=== PATIENT | male | born 1945 | race Caucasian/White ===

== ENCOUNTER 2019-08-03 08:11 | Day surgery (SDC) | payer MEDICARE ==
[2019-07-31 15:42] LABS: BASOPHILS % (AUTO) 0.5 % (0.0-5.0); LYMPHOCYTES % (AUTO) 15.4 % (21.0-51.0); MEAN CORPUSCULAR HEMOGLOBIN 31.8 pg (27.0-33.0); MEAN CORPUSCULAR VOLUME 93.7 fL (79-99); MONOCYTES % (AUTO) 4.9 % (3.0-13.0); NEUTROPHILS % (AUTO) 76.9 % (40.0-77.0); PLATELET COUNT (AUTO) 42 K/uL (130-400); RED BLOOD CELL COUNT(AUTO) 4.59 MIL/uL (4.50-6.20); RED CELL DISTRIBUTION WIDTH 11.7 % (11.0-15.5); WHITE BLOOD COUNT (AUTO) 7.9 K/uL (4.8-10.8)
--- NOTE | 2019-07-31 15:55 | NUR ---
nursing regarding abnormal ekg dr santos here and seen ekg and ok to proc with proc, no old ekg found on record Addendum: 07/31/19 at 1559 by SERGIO PANTOJA RN Amended: Links added.
[2019-07-31 15:56] LABS: INR 1.05 (0.85-1.15); PARTIAL THROMBOPLASTIN TIME 28.2 SEC (26.3-35.5)
[2019-07-31 15:58] VITALS: BP 156/82
[2019-07-31 16:03] LABS: CREATININE 1.1 mg/dL (0.5-1.5); POTASSIUM 4.3 mmol/L (3.5-5.1)
[2019-07-31 17:17] LABS: APPEARANCE,URINE Clear (CLEAR); BILIRUBIN,URINE Negative (NEGATIVE); COLOR,URINE Yellow (YELLOW); GLUCOSE, URINE (UA) Negative (NEGATIVE); KETONES,URINE Negative (NEGATIVE); LEUKOCYTE ESTERASE ,URINE Small (NEGATIVE); NITRATE,URINE Negative (NEGATIVE); OCCULT BLOOD,URINE Nonhemolyzed Trace (NEGATIVE); PH,URINE 7.5 (5.0-8.0); PROTEIN,URINE Trace mg/dL (NEGATIVE); UROBILINOGEN,URINE 0.2 mg/dL (0.2-1.0)
[2019-07-31 17:59] LABS: BACTERIA,URINE Moderate /HPF (None Seen)
[2019-07-31 18:00] LABS: MUCUS,URINE Few LPF (None Seen)
--- NOTE | 2019-08-02 13:26 | NUR ---
labs spoke to cori informed her that Anesthesia DR. Santos informed of low Plt 42, as per dr. santos inform dr. fernandez of low plt level. message left with cori. awaiting for further orders. all labs where fax to dr. marquez per there request
--- NOTE | 2019-08-02 17:00 | NUR ---
FOLLOW UP PATIENT HAS HX PSEUDOTHROMBOCYTOPENIA , DR PHILLIPS FOLLOWS UP PATIENT . PROGRESS NOTE ON CHART
--- NOTE | 2019-08-02 17:00 | NUR ---
FOLLOW UP CALLED DR. FLOWER OFFICE TO SPEAK TO DR. GLOVER, SPOKE TO ANDRES, SHE STATED SHE HAS BEEN TRYING TO GET OF HOLD OF DR. GLOVER THIS EARLIER TODAY TO INFORM HIM OF LOW PLT LEVEL. SHE STATED WILL WILL CONTINUE TO CALL HIM AND TO KEEP PATIENT ON SURGERY SCHEDULED AND DR. GLOVER WILL EVALUATE PATIENT IN AM.
[2019-08-03] VITALS (18 sets, daily range): BP systolic 122–148; BP diastolic 63–81
[~2019-08-03] VITALS: Ht 185.4 cm; Wt 76.6 kg
[~2019-08-03 08:11] MED LIST: APIX5TAB PO; AZELASTINE; EYE DROPS; FINA5TAB2 PO; FLEC150T2 PO; FLUTICASONE; GENTAMICIN SULFATE 320 MG in SODIUM CHLORIDE 0.9% 100 ML IV SCH; HYDR12.54 PO; LISI40TA4 PO; SIMV-46 PO; TEMA30CA PO
[2019-08-03] MEDS ORDERED: LACTATED RINGERS 1000ML 1,000 ML IV ONE (08:56)
[2019-08-03] MEDS: CEFTRIAXONE SODIUM 1 GM IVP SCH ×2 (09:00→10:40)
[2019-08-03] MEDS ORDERED: LEVO500T89 PO (10:00)
[2019-08-03] MEDS ORDERED: FOLI20CA PO (10:00)
[2019-08-03] MEDS ORDERED: LIDOCAINE PF 2% 5ML ABBOJECT ONE (10:36)
[2019-08-03] MEDS ORDERED: FENTANYL CITRATE PF 50 MCG/1 ML 2ML VIAL ONE ×2 (10:36→11:43)
[2019-08-03] MEDS ORDERED: PROPOFOL 10 MG/ML 20ML VIAL IV ONE (10:36)
--- NOTE | 2019-08-03 14:18 | NUR ---
DISCHARGE INSTRUCTIONS PROVIDED TO PATIENT AND PATIENT'S SPOUSE. HANDOUTS PROVIDED AND [facility] INSTRUCTIONS PROVIDED. PATIENT INSTRUCTED TO USE BACITRACIN OINTMENT ON URETHRA 2 TIMES PER DAY FOR 4 DAYS. FOLLOW UP APPOINTMENT PROVIDED. [facility] BAG CHANGED OUT TO LEG BAG.
--- NOTE | 2019-08-03 14:25 | NUR ---
PATIENT DISCHARGED FROM FACILITY [facility] WHEELCHAIR. PATIENT ASSISTED INTO PRIVATE VEHICLE DRIVEN BY SPOUSE
== END 2019-08-03 14:25 | disposition home or self-care (01) ==
LOC: DAH 08:11
PROVIDERS: ATTEND Urology
DX: N40.1 Benign prostatic hyperplasia with lower urinary tract symptoms (principal); R31.0 Gross hematuria; I25.10 Atherosclerotic heart disease of native coronary artery without angina pectoris; I10 Essential (primary) hypertension; I48.91 Unspecified atrial fibrillation; E03.9 Hypothyroidism, unspecified; Z79.01 Long term (current) use of anticoagulants; Z79.899 Other long term (current) drug therapy
CPT/HCPCS: 36415; 52648; 71045; 80048; 81001; 85025; 85610; 85730; 87077; 87088; 87186; 88305; 93005; A4215; A4221; A4222; A4223; A4354; A4600; A4657; A4663; A4930; A6260; J0696; J1580; J2001; J2704; J3010 ×2; J7030 ×2; J7120

== ENCOUNTER → 2024-06-27 | Outpatient (CLI) | payer MEDICARE ==
[~2024-06-27] MED LIST changes: +FINA-37 PO; -FINA5TAB2 PO; +FOLI20CA PO; -GENTAMICIN SULFATE 320 MG in SODIUM CHLORIDE 0.9% 100 ML IV SCH; +LEVO-70 PO; -LISI40TA4 PO; +LISI40TA9 PO
[2024-06-27] MEDS: REGADENOSON 0.4 MG/5 ML PF SYG IVP ONE (11:02)
--- NOTE | 2024-06-28 08:11 | HMCSR ---
APPROVED REPORT Height: 5 ft 9in Weight: 177 lbs TEST INDICATIONS CAD The imaging protocol used to acquire images was Rest Tc-99m/stress Tc-99m 1 day Consent: The procedure was explained and understood by the patient. Informerd consent was witnessed Marbin BUCK RN First, low dose rest was performed then high dose stress. RESTING DATA: The resting ekg shows: NSR Rest SPECT myocardial perfusion imaging was performed in supine position 70 minutes following the int ravenous injection of 13.2 mCi of Tc-99 Sestamibi. Time of rest injection: 08:14: Date: 06/27/2024 Time of rest imagin:24: Date: 06/27/2024 PHARMACOLOGIC STRESS: Pharmacologic stress test was performed by injecting regadenoson 0.4 mg IV push followed by the intra venous injection of 32.0 mCi of Tc-99 Sestamibi. Time of stress injection: 09:49: Date: 06/27/2024 Time of stress imagin:19: Date: 06/27/2024 Heart Rate at time of stress injection: 63 bpm. Gated Stress SPECT was performed 90 minutes after stress injection. The images were gated to evaluate regional wall motion and calculate left ventricular ejection fracti on. STRESS DETAILS Reason for Termination: Infusion complete Stress Symptoms: Dyspnea Max HR Achieved: 81 bpm % of APMHR Achieved: 57 Max Blood Pressure: 170/87 mmHg Stress ECG: NSR Conclusion No ischemia No infarct LV ejection fraction 66% Diaphragm attenuation artifact Normal LV wall motion Normal LV size at rest and stress No increased lung uptake
== END | disposition home or self-care (01) ==
LOC: SHCH 07:33
PROVIDERS: ATTEND Internal Medicine Cardiovascular Disease
DX: I25.10 Atherosclerotic heart disease of native coronary artery without angina pectoris (principal)
CPT/HCPCS: 78452; 93017; J2785; A9500 ×2